=== PATIENT | female | born 1970 | race Caucasian/White ===

== ENCOUNTER 2019-12-16 16:28 | Outpatient (RCR) | payer OTHER, SELFPAY ==
--- NOTE | 2019-12-16 17:58 | PTOPEVAL ---
Thank you for referring this patient to [facility]. Please review, sign, date and return this plan of care [facility]. I agree with and certify that the following plan of care is medically necessary. 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 She reports that Family she got out of her truck and was opening her grain binds. She reports that she was using a broom to push grain into a grate and felt a pop in her low back. She reports she had immediate pain. She reports that she went to the doctor that day. she reports that she has been off work since the initial incident. She reports that she underwent MRI showed disc bulging in the low back. She reports that her neck pain began about 1 1/ 2 to 2 months after the intial injury. She had xray of the neck which showed nothing signficant according to the pt . she reports that her goal is to decrease her neck and back pain. 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
--- NOTE | 2019-12-24 15:54 | PCPTNOTE ---
12/24/19 patient did not show for apt. Attempted contact. no answer. TRINI
--- NOTE | 2019-12-27 15:25 | PCPTNOTE ---
12/27/19 Pt did not show for appt. Attempted contact with no answer. TRINI
--- NOTE | 2020-01-27 11:26 | PCPTNOTE ---
Pt. last attended Rx on 12/23/19. She has failed to return to the clinic since this date and no showed her scheduled appointments for 12/24/19 and 12/27/19. she will be discharged from our care at this time. Refer to last daily note for pt. discharge status.
== END 2019-12-23 09:25 | disposition home or self-care (01) ==
LOC: CHSPT 16:28
DX: M54.5 Low back pain (principal); M54.2 Cervicalgia
CPT/HCPCS: 97014; 97110; 97161; G0283

== ENCOUNTER 2019-12-22 16:55 | Emergency (ER) | payer OTHER, SELFPAY ==
--- NOTE | ~2019-12-22 | XR_ITS ---
EXAMINATION: XR chest 2V DATE: 12/22/2019 17:43 INDICATION: Chest pain and nausea, shortness of breath TECHNIQUE: Frontal and lateral views of the chest are obtained COMPARISON: None available FINDINGS: The lungs are free of acute opacities. There is no pleural effusion or pneumothorax. The ca rdiomediastinal silhouette is normal. There is mild thoracic spondylosis. Surgical clips in the right upper quadrant are likely from prior cholecystectomy. IMPRESSION: 1. No acute cardiopulmonary abnormality. Reviewed, dictated and finalized at location A. [employer]
[2019-12-22 17:00] VITALS: BP 141/79; PULSE 74; RESP 18; TEMP 37; O2SAT 95
--- NOTE | 2019-12-22 17:01 | ECG_ITS ---
Measurements Intervals [place] Rate: 73 P: 47 MA: 180 QRS: 10 QRSD: 93 T: 40 QT: 383 QTc: 424 Interpretive Statements SINUS RHYTHM INCOMPLETE RIGHT BUNDLE BRANCH BLOCK LOW QRS VOLTAGE IN PRECORDIAL LEADS BORDERLINE ECG Electronically Signed On 12-23-2019 8:09:18 [employer]ENDAR CONTROL [employer] by Larry Ribeiro D.O.
--- NOTE | 2019-12-22 17:01 | ED.CHESTPAIN ---
HPI - Chest Pain General Chief Complaint: Chest Pain Stated Complaint: chest pain Time Seen by Provider: 12/22/19 17:01 Source: patient Mode of arrival: ambulatory Limitations: no limitations History of Present Illness HPI narrative: 49-year-old woman comes in today complaining of chest pain in the middle of her chest radiating to right side of her chest and shoulder that started yesterday. Patient states that she has had nausea without vomiting, shortness of breath, fatigue and lightheadedness and sweats with the pain. It was constant for most of the day yesterday and has been intermittent today. She states the pain gets better when she rests. She has had no syncope, cough, abdominal pain or recent illness. She had a negative treadmill stress test within the last 2 years. Patient states she has had an elevated WBC for years as well as some hematuria. She expressed a concern re cancer as an aunt has multiple myeloma. MD complaint: chest pain Onset (ago): day(s) (1) Timing of current episode: episodic Pain location: substernal Pain radiation: right arm and right shoulder Severity: moderate Quality: heaviness and dull Relieving factors: rest Exacerbating factors: nothing Associated symptoms: nausea, diaphoresis and dyspnea Treatment prior to arrival: none Risk Factors Coronary artery disease risk factors: smoking history, hyperlipidemia, hypertension and family history of CAD before age 50 Related Data On Oral Contraceptives: No Home Medications Medication Instructions Recorded Confirmed albuterol sulfate [Ventolin HFA] 1 puff INHALATION BID-TID 12/22/19 12/22/19 aspirin [Aspir-81] 81 mg PO DAILY 12/22/19 12/22/19 biotin-keratin [Biotin Plus 1 tablet PO DAILY 12/22/19 12/22/19 Keratin] bupropion HCl 300 mg PO DAILY 12/22/19 12/22/19 buspirone 7.5 mg PO DAILY 12/22/19 12/22/19 citalopram 40 mg PO DAILY 12/22/19 12/22/19 cyclobenzaprine 10 mg PO BID PRN 12/22/19 12/22/19 famotidine 40 mg PO DAILY 12/22/19 12/22/19 fluticasone propionate 1 spray INTRANASAL 12/22/19 gabapentin 300 mg PO TID 12/22/19 12/22/19 losartan 100 mg PO DAILY 12/22/19 12/22/19 meloxicam 7.5 mg PO DAILY 12/22/19 12/22/19 simvastatin 20 mg PO DAILY 12/22/19 12/22/19 triamterene-hydrochlorothiazid 1 tablet PO DAILY 12/22/19 12/22/19 vitamin B complex [B 1 tablet PO DAILY 12/22/19 12/22/19 Complex-Vitamin B12] Allergies Allergy/AdvReac Type Severity Reaction Status Date / Time No Known Allergies Allergy Unverified 06/02/17 14:52 Review of Systems Constitutional: Constitutional: Denies chills, Reports fatigue, Denies fever(s) and Denies weakness Eyes: Eyes: Denies change in vision and Denies photophobia ENT: Denies dysphagia, Denies nasal congestion and Denies sore throat Cardiovascular: Cardiovascular: Reports as per HPI, Reports chest pain and Reports radiating jaw, neck or arm pain (right) Respiratory: Respiratory: Denies chest congestion, Denies cough, Reports dyspnea and Denies wheezing Gastrointestinal: Gastrointestinal: Denies abdominal pain, Denies diarrhea, Reports nausea and Denies vomiting Genitourinary: Genitourinary: Denies nocturia and Denies dysuria Musculoskeletal: Musculoskeletal: Denies joint swelling Integumentary/Breasts: Skin/Breast: Denies pruritus, Denies erythema and Denies rash Neurologic: Denies vertigo, Denies dizziness, Denies syncope and Denies focal weakness Psychiatric: Psychiatric: Denies anxiety and Denies depression Endocrine: Endocrine: Denies polydipsia and Denies polyuria Hematologic/Lymphatic: Hematologic/Lymphatic: Denies easy bleeding and Denies easy bruising Allergic/Immunologic: Allergic/Immunologic: Denies lip swelling and Denies wheezing PMFSH Past Medical History Medical History Anxiety COPD (chronic obstructive pulmonary disease) Depression GERD (gastroesophageal reflux disease) Hyperlipidemia Hypertension Surgical Hi
[2019-12-22] MEDS: ASPIRIN 81 MG CHEWABLE TABLET 243 MG PO (17:36)
[2019-12-22 17:37] LABS: Hematocrit 40.5 % (35.0-49.0); Hemoglobin 13.7 g/dL (12.0-15.0); Mean Corpuscular HGB Conc 33.8 g/dL (32.0-36.0); Mean Corpuscular Hemoglobin 29.3 pg (27.0-31.0); Mean Corpuscular Volume 86.7 fL (78.0-102.0); Mean Platelet Volume 10.3 fl (9.2-11.8); Platelet Count Result 291 K/mm3 (150-420); Red Blood Count 4.67 M/mm3 (4.20-5.40); Red Cell Distribution Width 13.5 % (11.6-14.4); White Blood Count 15.3 K/mm3 (4.8-10.8)
[2019-12-22 17:37] LABS: Influenza Control Valid (Valid)
[2019-12-22 17:54] LABS: Partial Thromboplastin Time 25.8 SEC (22.3-31.6); Prothrombin Time 9.9 Seconds (9.64-11.0)
[2019-12-22 17:59] LABS: Band Neutrophils Percent 0 % (0-6); Basophils Percent Manual 0 % (0-1); Eosinophils Absolute Manual 0.76 K/mm3 (0.02-0.5); Eosinophils Percent Manual 5 % (1-6); Lymphocytes Absolute Manual 4.89 K/mm3 (1.1-4.5); Lymphocytes Percent Manual 32 % (18-44); Metamyelocytes Percent 0 %; Monocytes Absolute Manual 1.07 K/mm3 (0.1-0.90); Monocytes Percent Manual 7 % (3-9); Myelocytes Percent 0 %; Neutrophils Absolute Manual 8.56 K/mm3 (1.7-7.2); Neutrophils Percent Manual 56 % (46-73); Platelet Estimate Adequate (Adequate); Total Cells Counted 100
[2019-12-22 18:00] LABS: Alanine Aminotransferase 32 U/L (14-59); Albumin Level 3.9 g/dL (3.4-5.0); Alkaline Phosphatase 113 U/L (46-116); Anion Gap 15.6 mmol/L (7-16); Aspartate Amino Transferase 21 U/L (15-37); Bilirubin,Total 0.2 mg/dL (0.00-1.00); Blood Urea Nitrogen 12 mg/dL (7-18); Calcium 8.8 mg/dL (8.5-10.1); Carbon Dioxide 27 mmol/L (21-32); Chloride 104 mmol/L (98-108); D Dimer 0.26 mg/L (0.19-0.50); Estimated Glomerular Filt Rate 54; Glucose 105 mg/dL (70-99); Lipase 157 U/L (73-393); Osmolality Calculated 295 mOsm/kg (285-295); Potassium 3.6 mmol/L (3.5-5.1); Sodium 143 mmol/L (136-145); Troponin I < 0.02 ng/mL (0.00-0.056)
[2019-12-22 18:47] LABS: Add Urine Microscopic? YES; Appearance Urine Clear (Clear); Bilirubin Urine Negative (Negative); Blood Urine 2+ (Negative); Color Urine Yellow (Yellow); Glucose Urine UA Negative (Negative); Ketones Urine Negative (Negative); Leukocyte Esterase Ur Negative (Negative); Nitrate Urine Negative (Negative); Protein Urine Negative (Negative); Urobilinogen Urine 0.2 mg/dL (0.2-1.0); pH Urine 5.5 (5.0-8.0)
[2019-12-22 18:52] LABS: Squamous Epithelial Cell Urine Rare /hpf (Few); WBC Urine 0-3 /hpf (0-3)
[2019-12-22 18:53] LABS: Bacteria Urine None seen /hpf
[2019-12-22 19:03] VITALS: BP 136/77
== END 2019-12-22 19:05 | disposition home or self-care (01) ==
PROVIDERS: Emergency Provider Emergency Medicine; PCP Physician Assistant
DX: R07.9 Chest pain, unspecified (principal)
CPT/HCPCS: 36415; 71046; 80053; 81001; 83690; 84484; 85025; 85380; 85610; 85730; 87804; 93005; 99284; A9270

== ENCOUNTER 2020-05-10 19:05 | Emergency (ER) | payer OTHER, SELFPAY ==
[2020-05-10 19:10] VITALS: BP 165/94; PULSE 70; RESP 16; TEMP 36.6; O2SAT 97
--- NOTE | 2020-05-10 19:38 | ED.NAVMDI ---
HPI - Nausea/Vomiting/Diarrhea General Chief complaint: Upper Respiratory Infection Stated complaint: sore throat, diarrhea, nausea, headache Time Seen by Provider: 05/10/20 19:38 Source: patient Mode of arrival: ambulatory Limitations: no limitations History of Present Illness HPI Narrative: 50-year-old woman comes in today complaining of 2 days of body aches, fatigue, feeling fevers, and nausea and diarrhea. Patient states she has also had a tickle in her throat and a sore throat. Patient states that she thinks she might have strep throat. Her daughter has had a sore throat as well. The patient recently traveled to [place] and went to an [employer] stewart there. She denies chest pain and shortness of breath. Patient states she is concerned because her urine has been darker than usual. MD elicited complaint: nausea, vomiting and diarrhea Onset (ago): day(s) (2) Description of vomiting: food contents Description of diarrhea: watery Associated nausea: Yes Associated abdominal pain: No Location of pain: other ( Throat) Pain consistency: constant Severity: moderate Exacerbating factors: other ( swallowing) Relieving factors: none Context: sick contacts Associated symptoms: myalgias, fever/chills, malaise and nausea/vomiting Treatment prior to arrival: none Related Data Home Medications Medication Instructions Recorded Confirmed albuterol sulfate [Ventolin HFA] 1 puff INHALATION BID-TID 12/22/19 12/22/19 aspirin [Aspir-81] 81 mg PO DAILY 12/22/19 12/22/19 biotin-keratin [Biotin Plus 1 tablet PO DAILY 12/22/19 12/22/19 Keratin] bupropion HCl 300 mg PO DAILY 12/22/19 12/22/19 buspirone 7.5 mg PO DAILY 12/22/19 12/22/19 citalopram 40 mg PO DAILY 12/22/19 12/22/19 cyclobenzaprine 10 mg PO BID PRN 12/22/19 12/22/19 famotidine 40 mg PO DAILY 12/22/19 12/22/19 fluticasone propionate 1 spray INTRANASAL 12/22/19 gabapentin 300 mg PO TID 12/22/19 12/22/19 losartan 100 mg PO DAILY 12/22/19 12/22/19 meloxicam 7.5 mg PO DAILY 12/22/19 12/22/19 simvastatin 20 mg PO DAILY 12/22/19 12/22/19 triamterene-hydrochlorothiazid 1 tablet PO DAILY 12/22/19 12/22/19 vitamin B complex [B 1 tablet PO DAILY 12/22/19 12/22/19 Complex-Vitamin B12] Allergies Allergy/AdvReac Type Severity Reaction Status Date / Time No Known Allergies Allergy Unverified 06/02/17 14:52 Review of Systems Constitutional: Constitutional: Reports chills, Reports fatigue and Reports fever(s) Eyes: Eyes: Denies change in vision and Denies photophobia ENT: Denies dysphagia, Denies nasal congestion and Reports sore throat Cardiovascular: Cardiovascular: Denies chest pain and Denies radiating jaw, neck or arm pain Respiratory: Respiratory: Denies cough, Denies dyspnea and Denies wheezing Gastrointestinal: Gastrointestinal: Denies abdominal pain, Reports diarrhea, Reports nausea and Reports vomiting Integumentary/Breasts: Skin/Breast: Denies pruritus, Denies erythema and Denies rash Neurologic: Denies vertigo, Denies dizziness and Denies syncope Endocrine: Endocrine: Denies polydipsia and Denies polyuria Hematologic/Lymphatic: Hematologic/Lymphatic: Denies easy bleeding and Denies easy bruising Allergic/Immunologic: Allergic/Immunologic: Denies lip swelling and Denies wheezing [facility] Family History Family History (Updated 12/22/19 @ 17:18 by Jase Moscoso MD) Grandparent Acute myocardial infarction about 50 yo at onset Social History Social History Smoking status: Current every day smoker Alcohol intake: never Substance use: never Exam Const: General: alert Nutritional Appearance: obese Orientation/consciousness: patient oriented x3 Limitations: no limitations Other: mild acute distress HENMT: Head: normal to inspection General nose exam: Normal nares present Face and sinus: normal facial exam Mouth: Yes moist mucous membranes Throat: uvula midline Other
--- NOTE | 2020-05-10 19:57 | PC.NURSE ---
PT REPORTS THAT SHE IS NOT CURRENTLY TAKING ANY OF HER MEDICATIONS, STATES SHE HASN'T UNPACKED THEM SINCE GETTING HOME FROM [place] TWO WEEKS AGO.
[2020-05-10 19:59] LABS: Add Urine Microscopic? YES; Appearance Urine Clear (Clear); Bilirubin Urine Negative (Negative); Blood Urine 3+ (Negative); Color Urine Yellow (Yellow); Glucose Urine UA Negative (Negative); Ketones Urine Negative (Negative); Leukocyte Esterase Ur Negative (Negative); Nitrate Urine Negative (Negative); Protein Urine Negative (Negative); Specific Grav Ur 1.025 (1.010-1.020); Urobilinogen Urine 0.2 mg/dL (0.2-1.0)
[2020-05-10 20:06] LABS: Bacteria Urine 2+ /hpf; RBC Urine 21-50 /hpf (0-2); Squamous Epithelial Cell Urine Few /hpf (Few); WBC Urine 0-3 /hpf (0-3)
[2020-05-10 20:19] VITALS: BP 130/63
[2020-05-12 14:52] LABS: SARS-CoV-2 RNA PCR Negative
== END 2020-05-10 20:23 | disposition home or self-care (01) ==
PROVIDERS: Emergency Provider Emergency Medicine; PCP Physician Assistant
DX: J02.9 Acute pharyngitis, unspecified (principal); K52.9 Noninfective gastroenteritis and colitis, unspecified
CPT/HCPCS: 81001; 87081; 87635; 87880; 99283; C9803; U0003

== ENCOUNTER 2020-08-04 19:19 | Emergency (ER) | payer OTHER, SELFPAY ==
--- NOTE | ~2020-08-04 | CT_ITS ---
EXAMINATION: CT abdomen pelvis w con INDICATION: Nausea, vomiting, and diarrhea, epigastric pain TECHNIQUE: Computed tomographic images of the abdomen and pelvis were obtained after the administrati on of 100 cc of Omnipaque 350 intravenous contrast. The dose-length product (DLP) was 1488.70 mGy-cm. Automated exposure control and iterative reconstruction technique were employed. COMPARISON: None available FINDINGS: The lung bases are clear. The heart size is normal. The gallbladder is surgically absent. T he liver is diffusely low in attenuation when compared with the spleen, consistent with hepatic steat osis. The spleen, pancreas, and adrenal glands are normal. There is a 9 mm cyst of the right kidney u pper pole. The left kidney is unremarkable. No pathologically enlarged abdominal or pelvic lymph node s are identified. There is no free intraperitoneal gas or evidence of bowel obstruction. IMPRESSION: 1. No CT correlate for the patient's symptoms. 2. Diffuse hepatic steatosis. Reviewed, dictated and finalized at location A.
--- NOTE | 2020-08-04 19:25 | PC.NURSE ---
Pt vomiting, no obvious signs of blood noted.
[2020-08-04] MEDS: ONDANSETRON INJ 4 MG/2 ML VIAL IV PUSH (19:28)
--- NOTE | 2020-08-04 19:28 | ED.GIBLEED ---
HPI - GI Bleed General Chief complaint: Abdominal Pain Stated complaint: . Time Seen by Provider: 08/04/20 19:28 Source: patient and RN notes reviewed Mode of arrival: ambulatory Limitations: no limitations History of Present Illness HPI Narrative: Patient states she has had intermittent vomiting of blood for 2 months. She has also had some black stools intermittently. Said last time she had some black stools was couple weeks ago. The reason she came in today because severe abdominal pain epigastric. She has been taking naproxen daily for several years. MD complaint: blood streaked emesis, blood on toilet paper and melena Onset (ago): month(s) (2) Pain Consistency: intermittent Severity: moderate Relieving factors: none Exacerbating factors: none Associated symptoms: abdominal pain, nausea and vomiting Treatments Prior to Arrival: none Related Data Home Medications Medication Instructions Recorded Confirmed naproxen 500 mg PO BID PRN 08/04/20 08/04/20 Allergies Allergy/AdvReac Type Severity Reaction Status Date / Time No Known Allergies Allergy Unverified 06/02/17 14:52 Review of Systems Constitutional: Constitutional: Denies chills, Denies fever(s) and Denies weakness Eyes: Eyes: Reports no additional eye complaints ENT: Reports system reviewed and no additional complaints, except as documented Cardiovascular: Cardiovascular: Reports no additional cardiovascular complaints Respiratory: Respiratory: Reports no additional respiratory complaints Gastrointestinal: Gastrointestinal: Reports as per HPI Musculoskeletal: Musculoskeletal: Reports no additional musculoskeletal complaints Integumentary/Breasts: Skin/Breast: Reports system reviewed and no additional complaints, except as docu Neurologic: Reports system reviewed and no additional complaints, except as documented Psychiatric: Psychiatric: Reports no additional psychiatric complaints Endocrine: Endocrine: Reports no additional endocrine complaints [facility] Past Medical History Medical History Anxiety COPD (chronic obstructive pulmonary disease) Depression GERD (gastroesophageal reflux disease) Hyperlipidemia Hypertension Surgical History Surgical History History of appendectomy History of hysterectomy Hx of cholecystectomy Family History Family History Grandparent Acute myocardial infarction about 50 yo at onset Social History Social History Smoking status: Current every day smoker Alcohol intake: never Substance use: never Exam Const: General: healthy appearing, no acute distress and alert Nutritional Appearance: well nourished and obese morbidly obese Orientation/consciousness: patient oriented x3 Other: Female nurse in room during examination. HENMT: Head: normal to inspection Ears: external ears normal Eyes: Conjunctivae: conjunctivae normal Pupils: Equal, round and reactive pupils present EOM: EOMs intact bilaterally Neck: Neck: normal visual inspection Resp: Effort & Inspection: normal respiratory effort Auscultation: clear to auscultation bilaterally Cardio: Rate: regular rate Rhythm: regular rhythm GI: GI Palp: Yes Soft to palpation, Yes Tenderness to palpation present (GI) (Moderate epigastric), Yes Guarding due to palpation present (GI) and No Rebound tenderness present Auscultation: normal bowel sounds Rectal Exam: normal sphincter tone, No External hemorrhoid(s) present, No Internal hemorrhoid(s) present and No tenderness Back/Spine/Pelvis: Cervical Spine: cervical ROM normal Thoracic/Lumbar Spine: thoraco-lumbar ROM normal Skin: General skin exam: normal color Rashes: no rashes Neuro: General: patient oriented x3, moves all extremities and no focal motor deficits S
[2020-08-04 19:34] VITALS: BP 166/88; PULSE 79; RESP 18; TEMP 37.1; O2SAT 95
[2020-08-04 19:43] LABS: Basophils Absolute Auto 0.07 K/mm3 (0.00-0.10); Basophils Percent Auto 0.4 % (0.0-1.0); Eosinophils Absolute Auto 0.49 K/mm3 (0.02-0.50); Hematocrit 44.8 % (35.0-49.0); Hemoglobin 14.8 g/dL (12.0-15.0); Immature Granulocyte Absolute 0.06 K/mm3 (0.00-0.00); Immature Granulocyte Percent A 0.4 % (0.0-0.0); Lymphocytes Absolute Auto 5.35 K/mm3 (1.10-4.50); Lymphocytes Percent Auto 32.9 % (18.0-42.0); Mean Corpuscular Hemoglobin 28.4 pg (27.0-31.0); Mean Corpuscular Volume 85.8 fL (78.0-102.0); Mean Platelet Volume 10.4 fl (9.2-11.8); Monocytes Absolute Auto 1.16 K/mm3 (0.10-0.90); Monocytes Percent Auto 7.1 % (2.0-11.0); Neutrophils Absolute Auto 9.1 K/mm3 (1.7-7.2); Neutrophils Percent Auto 56.2 % (50.0-70.0); Platelet Count Result 324 K/mm3 (150-420); Red Blood Count 5.22 M/mm3 (4.20-5.40); Red Cell Distribution Width 13.1 % (11.6-14.4); White Blood Count 16.3 K/mm3 (4.8-10.8)
[2020-08-04] MEDS: PANTOPRAZOLE SODIUM IV 40 MG VIAL IV PUSH (19:44)
[2020-08-04 19:56] LABS: Partial Thromboplastin Time 26.8 SEC (22.3-31.6); Prothrombin Time 10.1 Seconds (9.64-11.0)
[2020-08-04 19:58] LABS: Alanine Aminotransferase 29 U/L (14-59); Albumin Level 3.7 g/dL (3.4-5.0); Alkaline Phosphatase 119 U/L (46-116); Anion Gap 12 mmol/L (8-16); Aspartate Amino Transferase 21 U/L (15-37); Bilirubin,Total 0.3 mg/dL (0.00-1.00); Blood Urea Nitrogen 15 mg/dL (7-18); Calcium 8.9 mg/dL (8.5-10.1); Carbon Dioxide 25 mmol/L (21-32); Chloride 105 mmol/L (98-108); Estimated CRCL calculation 70 ml/min; Estimated Glomerular Filt Rate 56; Glucose 115 mg/dL (70-99); Lipase 114 U/L (73-393); Magnesium 1.9 mg/dL (1.8-2.4); Osmolality Calculated 295 mOsm/kg (285-295); Potassium 3.6 mmol/L (3.5-5.1); Sodium 142 mmol/L (136-145); Total Protein 7.7 g/dL (6.4-8.2)
[2020-08-04 20:06] LABS: Occult Blood Negative (Negative)
[2020-08-04 20:51] VITALS: BP 126/74; PULSE 72; RESP 18; O2SAT 97
--- NOTE | 2020-08-04 20:53 | PC.NURSE ---
Pt states that she is unable to provide urine sample at this time.
[2020-08-04 21:24] LABS: Add Urine Microscopic? YES; Appearance Urine Clear (Clear); Bilirubin Urine Negative (Negative); Blood Urine 3+ (Negative); Color Urine Yellow (Yellow); Glucose Urine UA Negative (Negative); Ketones Urine Negative (Negative); Leukocyte Esterase Ur Negative LEU/UL (Negative); Nitrate Urine Negative (Negative); Protein Urine Negative (Negative); Urobilinogen Urine 0.2 mg/dL (0.2-1.0); pH Urine 5.5 (5.0-8.0)
[2020-08-04 21:29] LABS: Bacteria Urine Trace /hpf; Squamous Epithelial Cell Urine Few /hpf (Few); WBC Urine 0-3 /hpf (0-3)
== END 2020-08-04 21:42 | disposition home or self-care (01) ==
PROVIDERS: Emergency Provider Emergency Medicine
DX: K27.9 Peptic ulcer, site unspecified, unspecified as acute or chronic, without hemorrhage or perforation (principal); R31.9 Hematuria, unspecified
CPT/HCPCS: 36415; 74177; 80053; 81001; 82272; 83690; 83735; 85025; 85610; 85730; 96374; 96375; 99283; 99284; C9113; J2405; Q9965

== ENCOUNTER 2020-12-22 12:41 | Emergency (ER) | payer OTHER, SELFPAY ==
--- NOTE | ~2020-12-22 | CT_ITS ---
EXAMINATION: CT brain wo con, CT cervical spine wo con EXAM DATE: 12/22/2020 13:56 (accession [id number]), 12/22/2020 13:53 (accession [id number]) INDICATION: Trauma fall on head 1day ago, headache and neck pain. TECHNIQUE: Spiral CT of the head was performed without contrast. Axial, coronal and sagittal images were reviewed. Spiral CT of the cervical spine was performed without contrast. Axial images were rev iewed. Coronal and sagittal reformatted images were also reviewed. The dose-length product (DLP) fo r this examination was 605.33 (accession [id number]), 1.00 (accession [id number]) mGy-cm. Th e exposure was tailored according to patient size, and iterative reconstruction (ASIR) was used as ad ditional dose reduction technique. There is no prior study for comparison. FINDINGS: HEAD CT: There is no acute intraparenchymal hemorrhage. No evidence of intraparenchymal brain mass l esion. No evidence of acute infarction. There is no mass effect or midline shift. There is no obstru ctive hydrocephalus suspected. There are no extra-axial collections. There are no acute calvarial f ractures. The orbits are unremarkable. Soft tissue is unremarkable. The visualized sinuses and mas toid air cells are well aerated. CERVICAL CT: There is severe left C7-T1 facet arthropathy. Otherwise mild to moderate cervical spondy losis. There is no evidence of acute cervical fracture. The odontoid process is intact. Pre-dens sp jose is normal. Prevertebral soft tissue is normal. There are no soft tissue abnormalities identifie d. There is no disc space widening or traumatic vertebral body subluxation suspected. A detailed level by level evaluation of spondylosis can be added as addendum if requested. IMPRESSION: 1. No acute intracranial findings or cervical fracture. Reviewed, dictated and finalized at location B. [facility] [employer] [employer] IMPRESSION: 1. No acute intracranial findings or cervical fracture.
--- NOTE | 2020-12-22 12:47 | ED.FALL ---
HPI - Fall General Chief Complaint: Head Injury Stated Complaint: head injury Time Seen by Provider: 12/22/20 12:47 Source: patient Mode of arrival: ambulatory Limitations: no limitations History of Present Illness HPI Narrative: Patient comes in with headache and posterior neck pain, she had a post fall last pm and hit her in the neck. Since then she says she has had a bad headache. She has had no emesis, but has had nausea. She says she was moving her bed and a bedpost hit her hard in the posterior neck. Since that time pain has been moderately severe and has been ongoing, not relieved by NSAIDs at home. Related Data Home Medications Medication Instructions Recorded Confirmed naproxen 500 mg PO BID PRN 08/04/20 08/04/20 Allergies Allergy/AdvReac Type Severity Reaction Status Date / Time No Known Allergies Allergy Unverified 06/02/17 14:52 Review of Systems Constitutional: Constitutional: Reports no additional constitutional complaints Eyes: Eyes: Reports no additional eye complaints ENT: Reports system reviewed and no additional complaints, except as documented Cardiovascular: Cardiovascular: Reports no additional cardiovascular complaints Respiratory: Respiratory: Reports no additional respiratory complaints Gastrointestinal: Gastrointestinal: Reports no additional gastrointestinal complaints Genitourinary: Genitourinary: Reports no additional female genitourinary complaints Musculoskeletal: Musculoskeletal: Reports no additional musculoskeletal complaints Integumentary/Breasts: Skin/Breast: Reports system reviewed and no additional complaints, except as docu Neurologic: Reports system reviewed and no additional complaints, except as documented Psychiatric: Psychiatric: Reports no additional psychiatric complaints Endocrine: Endocrine: Reports no additional endocrine complaints Hematologic/Lymphatic: Hematologic/Lymphatic: Reports no additional hematologic/lymphatic complaints Allergic/Immunologic: Allergic/Immunologic: Reports no additional allergic/immunologic complaints [facility] Past Medical History Medical History Anxiety COPD (chronic obstructive pulmonary disease) Depression GERD (gastroesophageal reflux disease) Hyperlipidemia Hypertension Surgical History Surgical History History of appendectomy History of hysterectomy Hx of cholecystectomy Family History Family History Grandparent Acute myocardial infarction about 50 yo at onset Social History Social History Smoking status: Current every day smoker Alcohol intake: never Substance use: never Gender identity (if verbalized by the patient): Female Exam Const: General: alert Orientation/consciousness: patient oriented x3 HENMT: Head: normal to inspection Ears: external ears normal and TM's normal bilaterally General nose exam: Normal external nose present Face and sinus: normal facial exam Mouth: Yes Normal oral and palatal mucosa present Eyes: Conjunctivae: conjunctivae normal Neck: Neck: normal visual inspection and no lymphadenopathy Other: She appears to have some mild tenderness to touch at the posterior mid cervical spine area where the post struck her. She actually does not appear to have any significant decrease in her range of motion. Chest: Chest palpation & inspection: normal inspection of the chest Resp: Effort & Inspection: normal respiratory effort Auscultation: clear to auscultation bilaterally Cardio: Rate: regular rate Rhythm: regular rhythm GI: GI Palp: Yes Soft to palpation (nontender) Skin: General skin exam: normal color Neuro: General: patient oriented x3 and moves all extremities Extrem: General: normal to inspection Psych: Appearance: grossly normal M
[2020-12-22 13:10] VITALS: BP 133/79; PULSE 89; RESP 20; TEMP 36.3; O2SAT 96
[2020-12-22] MEDS: MAG HYDROX/ALUMINUM HYD/SIMETH 30 ML, PHENobarb/HYOSCY/ATROPINE/SCOP 32.4 MG, LIDOCAINE... PO (14:04)
[2020-12-22] MEDS: DICYCLOMINE HCL INJ 20 MG/2 ML VIAL IM (14:05)
[2020-12-22] MEDS: KETOROLAC (*BKC) 60 MG/2 ML VIAL IM (14:32)
[2020-12-22] MEDS: BACLOFEN 10 MG TABLET 20 MG PO (14:33)
[2020-12-22 15:05] VITALS: BP 142/86; PULSE 62; RESP 20; O2SAT 96
== END 2020-12-22 15:10 | disposition home or self-care (01) ==
PROVIDERS: Emergency Provider Emergency Medicine; PCP Physician Assistant
DX: M54.2 Cervicalgia (principal); R51.9 Headache, unspecified; I10 Essential (primary) hypertension; J44.9 Chronic obstructive pulmonary disease, unspecified; K21.9 Gastro-esophageal reflux disease without esophagitis; E78.5 Hyperlipidemia, unspecified; H53.40 Unspecified visual field defects; F41.9 Anxiety disorder, unspecified; Z90.49 Acquired absence of other specified parts of digestive tract; Z90.710 Acquired absence of both cervix and uterus; W20.8XXA Other cause of strike by thrown, projected or falling object, initial encounter; Y93.89 Activity, other specified; Y92.009 Unspecified place in unspecified non-institutional (private) residence as the place of occurrence of the external cause
CPT/HCPCS: 70450; 72125; 96372; 99283; 99284; A9270; J0500; J1885

== ENCOUNTER 2020-12-25 12:46 | Emergency (ER) | payer OTHER, SELFPAY ==
--- NOTE | 2020-12-25 12:49 | ED.GENADULT ---
HPI - General Adult General Chief complaint: Upper Respiratory Infection Stated complaint: headache and sore throat Time Seen by Provider: 12/25/20 12:49 Source: patient Mode of arrival: ambulatory Limitations: no limitations History of Present Illness HPI narrative: 50-year-old female patient presents to the [facility] with complaints of an ongoing headache since hitting her head a couple of days ago as well as a new sore throat and runny nose. Patient states that she hit her head a couple days ago seen in the emergency department and was given ketorolac as well as some muscle relaxants for headache and neck pain after her CT showed that she had no issues in the brain or bones of the neck. Patient states yesterday she started having sore throat, runny nose. Denies any fevers, body aches or chills. Patient states she is slightly nauseated but states that has also been ongoing since hitting her head. Patient denies any chest pain or shortness of breath. Patient states she has had a little bit of a cough that also started yesterday as well. Denies taking anything for her symptoms since they started. Related Data Home Medications Medication Instructions Recorded Confirmed No Home Medications 12/25/20 12/25/20 Allergies Allergy/AdvReac Type Severity Reaction Status Date / Time No Known Allergies Allergy Verified 12/25/20 13:13 Review of Systems Review of Systems: Narrative: CONSTITUTIONAL: Denies fever, chills, or sweats. EYES: Denies visual changes, redness, or discharge. ENT: Positive rhinorrhea, congestion, positive sore throat, or otalgia. CARDIOVASCULAR: Denies chest pain, palpitations, or edema. RESPIRATORY: Positive cough denies dyspnea. GASTROINTESTINAL: Denies abdominal pain, positive intermittent nausea, denies vomiting, or diarrhea. GENITOURINARY: Denies dysuria or hematuria. SKIN: Denies rash or itching. MUSCULOSKELETAL: Denies back pain, joint pain, or myalgia. NEUROLOGIC: Positive intermittent headache, denies numbness, or weakness. PSYCHIATRIC: Denies anxiety or depression. [facility] Past Medical History Medical History (Updated 12/25/20 @ 13:24 by ALETHEA Francisco) Anxiety COPD (chronic obstructive pulmonary disease) Depression GERD (gastroesophageal reflux disease) Hyperlipidemia Hypertension Surgical History Surgical History History of appendectomy History of hysterectomy Hx of cholecystectomy Family History Family History Grandparent Acute myocardial infarction about 50 yo at onset Social History Social History Smoking status: Current every day smoker Alcohol intake: never Substance use: never Gender identity (if verbalized by the patient): Female Comments At the time of my signature I agree with nursing past medical history, surgical, social, and family history. There is no relevant family history pertinent to the presenting complaint. Exam Narrative: Exam Narrative: GENERAL: Well-appearing, well-nourished, and in no acute distress. HEAD: Normocephalic, atraumatic. EYES: PERRLA and EOMI. ENT: Nares with erythema and edema noted bilaterally, no rhinorrhea or epistaxis. Mucous membranes moist. Posterior pharynx with slight erythema but no tonsil enlargement, no exudates or lesions present. Bilateral TMs are clear no erythema or foreign bodies in the canal. NECK: Supple. No lymphadenopathy CHEST: Clear to auscultation. No respiratory distress. HEART: Regular rate and rhythm. No murmur heard. Normal peripheral pulses. ABDOMEN: Soft, nontender, nondistended, normal active bowel sounds. EXTREMITIES: Normal range of motion. No edema. SKIN: Warm, dry, no rash. NEURO: No focal deficits. Alert and oriented x3. Course Vital Signs Vital signs: Vital Signs Temperature 36.6 C 12/25/20 13:02 Pul
[2020-12-25 13:02] VITALS: BP 145/89; PULSE 66; RESP 16; TEMP 36.6; O2SAT 99
[2020-12-26 19:42] LABS: SARS-CoV-2 RNA PCR Negative
== END 2020-12-25 13:29 | disposition home or self-care (01) ==
PROVIDERS: Emergency Provider Nurse Practitioner Family; PCP Physician Assistant
DX: J02.9 Acute pharyngitis, unspecified (principal); Z20.822 Contact with and (suspected) exposure to COVID-19; F17.200 Nicotine dependence, unspecified, uncomplicated; J44.9 Chronic obstructive pulmonary disease, unspecified; K21.9 Gastro-esophageal reflux disease without esophagitis; E78.5 Hyperlipidemia, unspecified; I10 Essential (primary) hypertension
CPT/HCPCS: 87081; 87880; 99213; C9803; G0463; U0003; U0005

== ENCOUNTER 2022-04-25 11:18 | Emergency (ER) | payer OTHER, SELFPAY ==
--- NOTE | ~2022-04-25 | CT_ITS ---
EXAMINATION: CTA chest PE protocol DATE: 04/25/2022 14:33 INDICATION: Shortness of breath, elevated d-dimer. Covid infection. TECHNIQUE: Computed tomography angiography (CTA) of the chest was performed with 100 mL Omnipaque-350 intravenous contrast timed to evaluate the pulmonary arteries. Coronal maximum intensity projection 3D-reconstructions were created by the technologist. Automated exposure control and iterative reconst ruction technique were employed. Exam dose: 1064.57 mGy-cm total exam DLP. COMPARISON: 04/25/2022 portable AP chest FINDINGS: There is diagnostic contrast enhancement of the pulmonary arteries and no evidence of pulmo nary embolism. No thoracic aortic aneurysm or dissection. Normal heart size. No pericardial or pleural effusion. Nonspecific mild hilar and mediastinal lymph node prominence, possibly reactive No pulmonary infiltrate or consolidation or pulmonary mass lesion is detected. Normal morphology of the adrenal glands. Status post cholecystectomy. Included skeletal structures are unremarkable. IMPRESSION: No evidence of pulmonary embolism Reviewed, dictated and finalized at [facility]. Reviewed, dictated and finalized at [facility].
--- NOTE | ~2022-04-25 | XR_ITS ---
EXAMINATION: XR chest 1V portable INDICATION: Cough TECHNIQUE: Portable AP chest at 1232 hours COMPARISON: 12/22/2019 FINDINGS: The lungs are free of acute opacities. No pleural effusion or pneumothorax. The cardiothymi c silhouette is normal. Surgical clips in the right upper quadrant are likely from prior cholecystect nallely. IMPRESSION: 1. No acute cardiopulmonary abnormality. Reviewed, dictated and finalized at location [facility].
[2022-04-25 11:25] VITALS: BP 130/72; PULSE 62; RESP 18; TEMP 36.7; O2SAT 96
[2022-04-25 11:34] VITALS: BP 107/70; PULSE 91; RESP 21; TEMP 36.7; O2SAT 96
--- NOTE | 2022-04-25 11:45 | ED.URI ---
HPI - URI/Sore Throat General Chief Complaint: Upper Respiratory Infection Stated Complaint: COUGH CONGESTION HEADACHE Time Seen by Provider: 04/25/22 11:45 Source: patient Mode of arrival: ambulatory History of Present Illness HPI Narrative: 52-year-old female, tremor smoker anxiety/depression hypertension, COPD presents to the ER with a 2 day history -- cough with mucoid sputum -- nausea, vomiting and diarrhea. No abdominal pain. -- Body ache -- frontal headache MD elicited complaint: cough Pertinent past history: COPD Onset (ago): day(s) ( started 2 days ago) Consistency: constant Severity: moderate Description of mucous: clear Able to tolerate fluids by mouth: Yes Exacerbating factors: nothing Relieving factors: nothing Associated symptoms: denies other symptoms Treatments prior to arrival: none Related Data Allergies Allergy/AdvReac Type Severity Reaction Status Date / Time No Known Allergies Allergy Verified 04/25/22 11:35 Review of Systems Review of Systems: All systems reviewed & are unremarkable except as noted in HPI and below Constitutional: Constitutional: Reports as per HPI and Reports no additional constitutional complaints Eyes: Eyes: Reports as per HPI and Reports no additional eye complaints ENT: Reports system reviewed and no additional complaints, except as documented and Reports as per HPI Cardiovascular: Cardiovascular: Reports as per HPI and Reports no additional cardiovascular complaints Respiratory: Respiratory: Reports as per HPI, Reports no additional respiratory complaints, Reports chest congestion, Reports cough and Reports dyspnea Gastrointestinal: Gastrointestinal: Reports as per HPI, Reports no additional gastrointestinal complaints, Reports diarrhea, Reports nausea and Reports vomiting Genitourinary: Genitourinary: Reports no additional female genitourinary complaints and Reports as per HPI Musculoskeletal: Musculoskeletal: Reports no additional musculoskeletal complaints, Reports as per HPI, Reports myalgias and Reports muscle cramps Integumentary/Breasts: Skin/Breast: Reports system reviewed and no additional complaints, except as docu and Reports as per HPI Neurologic: Reports system reviewed and no additional complaints, except as documented and Reports as per HPI Psychiatric: Psychiatric: Reports no additional psychiatric complaints and Reports as per HPI Endocrine: Endocrine: Reports no additional endocrine complaints and Reports as per HPI Hematologic/Lymphatic: Hematologic/Lymphatic: Reports no additional hematologic/lymphatic complaints and Reports as per HPI Allergic/Immunologic: Allergic/Immunologic: Reports no additional allergic/immunologic complaints and Reports as per HPI [facility] Past Medical History Medical History (Updated 04/25/22 @ 15:01 by Ryan De La Rosa MD) Anxiety COPD (chronic obstructive pulmonary disease) Depression GERD (gastroesophageal reflux disease) Hyperlipidemia Hypertension Surgical History Surgical History History of appendectomy History of hysterectomy Hx of cholecystectomy Family History Family History Grandparent Acute myocardial infarction about 50 yo at onset Social History Social History Smoking status: Current every day smoker Alcohol intake: never Substance use: never Gender identity (if verbalized by the patient): Female Exam Const: General: no acute distress Nutritional Appearance: well nourished and obese Orientation/consciousness: patient oriented x3 Limitations: no limitations HENMT: Head: normal to inspection Ears: external ears normal General nose exam: Normal external nose present Face and sinus: normal facial exam Mouth: Yes Normal oral and palatal mucosa present Throat: posterior oropharynx normal Eyes: Conjunc
--- NOTE | 2022-04-25 11:56 | ECG_ITS ---
Measurements Intervals Ehrhardt Rate: 70 P: 49 NV: 176 QRS: 14 QRSD: 79 T: 47 QT: 372 QTc: 401 Interpretive Statements SINUS RHYTHM LOW QRS VOLTAGE IN PRECORDIAL LEADS [QRS DEFLECTION < 1.0 mV IN CHEST LEADS] ANTEROSEPTAL MYOCARDIAL INFARCTION , OF INDETERMINATE AGE [40+ ms Q WAVE IN V1-V4] COMPARED TO ECG 12/22/2019 17:01:26 ANTERIOR Q-WAVES ARE NOW SEEN Electronically Signed On 04-25-2022 15:44:06 CDT by Arturo Coleman M.D.
[2022-04-25 12:14] LABS: Basophils Absolute Auto 0.03 K/mm3 (0.00-0.10); Basophils Percent Auto 0.5 % (0.0-1.0); Eosinophils Absolute Auto 0.03 K/mm3 (0.02-0.50); Eosinophils Percent Auto 0.5 % (1.0-6.0); Hematocrit 44.7 % (35.0-49.0); Hemoglobin 14.8 g/dL (12.0-15.0); Immature Granulocyte Absolute 0.01 K/mm3 (0.00-0.00); Immature Granulocyte Percent A 0.2 % (0.0-0.0); Lymphocytes Absolute Auto 2.48 K/mm3 (1.10-4.50); Lymphocytes Percent Auto 37.5 % (18.0-42.0); Mean Corpuscular HGB Conc 33.1 g/dL (32.0-36.0); Mean Corpuscular Hemoglobin 28.4 pg (27.0-31.0); Mean Corpuscular Volume 85.8 fL (78.0-102.0); Mean Platelet Volume 10.5 fl (9.2-11.8); Monocytes Absolute Auto 0.74 K/mm3 (0.10-0.90); Monocytes Percent Auto 11.2 % (2.0-11.0); Neutrophils Absolute Auto 3.3 K/mm3 (1.7-7.2); Neutrophils Percent Auto 50.1 % (50.0-70.0); Platelet Count Result 168 K/mm3 (150-420); Red Blood Count 5.21 M/mm3 (4.20-5.40); Red Cell Distribution Width 13.1 % (11.6-14.4); White Blood Count 6.6 K/mm3 (4.8-10.8)
[2022-04-25] MEDS: KETOROLAC 30 MG/ML VIAL (*BKC) IM (12:20)
[2022-04-25 12:34] LABS: Lactic Acid Reflex 0.8 mmol/L (0.4-2.0)
[2022-04-25 12:38] LABS: Alanine Aminotransferase 33 U/L (14-59); Albumin Level 3.4 g/dL (3.4-5.0); Alkaline Phosphatase 104 U/L (46-116); Anion Gap 7 mmol/L (8-16); Aspartate Amino Transferase 36 U/L (15-37); Bilirubin,Total 0.2 mg/dL (0.00-1.00); Blood Urea Nitrogen 14 mg/dL (7-18); Calcium 8.5 mg/dL (8.5-10.1); Carbon Dioxide 28 mmol/L (21-32); Chloride 102 mmol/L (98-108); Estimated CRCL calculation 60 ml/min; Estimated Glomerular Filt Rate 48; Glucose 89 mg/dL (70-99); Osmolality Calculated 283 mOsm/kg (285-295); Potassium 3.3 mmol/L (3.5-5.1); Sodium 137 mmol/L (136-145); Total Protein 7.2 g/dL (6.4-8.2); Troponin I 13.9 ng/L (0.00-60.4)
[2022-04-25 12:40] VITALS: BP 125/63; PULSE 68; RESP 18; O2SAT 96
[2022-04-25 12:41] LABS: NT Pro B Type Natriuretic Pept 28 pg/mL (0-125)
[2022-04-25 12:53] LABS: SARS-CoV-2 RNA PCR Positive (Negative)
[2022-04-25 12:58] LABS: Influenza A QL RT-PCR Negative (Negative); Influenza B QL RT-PCR Negative (Negative)
[2022-04-25 13:27] LABS: D Dimer 0.68 mg/L (0.19-0.50)
[2022-04-25] MEDS: ONDANSETRON HCL ODT 4 MG TABLET PO (13:29)
[2022-04-25 13:38] VITALS: BP 132/68; PULSE 61; RESP 16; TEMP 36.6; O2SAT 97
--- NOTE | 2022-04-25 14:11 | PC.NURSE ---
Multiple RN's attempted to start IV x 5 with no success. Pt had large vein in left lower leg. CÉSAR Lopez confirmed with CT that IV could be placed there prior to attempting. This RN successfully placed 20 gauge IV in left lower leg.
[2022-04-25] MEDS: SODIUM CHLORIDE 0.9% IV 500 ML 999 ML IV CONT (14:15)
[2022-04-25 15:08] VITALS: BP 128/88; PULSE 69; RESP 18; TEMP 36.6; O2SAT 97
[2022-04-25] MEDS: POTASSIUM CHLORIDE 20 MEQ TABLET PO (15:23)
== END 2022-04-25 15:22 | disposition home or self-care (01) ==
PROVIDERS: Emergency Provider Internal Medicine Critical Care Medicine; PCP Physician Assistant
DX: U07.1 COVID-19 (principal); J44.9 Chronic obstructive pulmonary disease, unspecified; K52.9 Noninfective gastroenteritis and colitis, unspecified
CPT/HCPCS: 36415; 71045; 71275; 80053; 83605; 83880; 84484; 85025; 85380; 87502; 93005; 96360; 96372; 99284; A9270; C9803; J1885; J7040; Q9967; U0003; U0005

== ENCOUNTER 2023-05-05 16:21 | Emergency (ER) | payer OTHER, SELFPAY ==
[2023-05-05 16:32] VITALS: BP 140/75; PULSE 77; RESP 18; TEMP 36.7; O2SAT 98
--- NOTE | 2023-05-05 16:39 | ED.SKABFB ---
HPI - Skin/Abscess/Foreign Bdy General Chief complaint: Wound/Laceration Stated complaint: Tick bite left leg Time Seen by Provider: 05/05/23 16:39 Source: patient and RN notes reviewed Mode of arrival: ambulatory Limitations: no limitations History of Present Illness HPI narrative: 53-year-old female presents with concern for tick bite. She also reports a burn that she sustained last week on her left arm that has opened up. She reports she noticed a tick on the back of her left leg, her boyfriend pulled it out and she thinks the head not come out. She reports it became swollen and red and is tender. She reports she had a headache today. She denies fever. She reports a burn on her left arm that she got on a muffler last week, she reports it opened up slightly and is painful. She denies any increased redness, warmth, swelling. She reports she has been putting burn patches on it. MD complaint: rash Related Data Allergies Allergy/AdvReac Type Severity Reaction Status Date / Time No Known Allergies Allergy Verified 05/05/23 16:27 Review of Systems Review of Systems: CONSTITUTIONAL: Denies malaise, chills, sweats, or fever. EYES: Denies redness, or discharge. ENT: Denies rhinorrhea, congestion, swollen lips, swollen tongue CARDIOVASCULAR: Denies chest pain, palpitations, or edema. RESPIRATORY: Denies cough or dyspnea. GASTROINTESTINAL: Denies abdominal pain, nausea, vomiting SKIN: Reports tick bite on the back of her left leg, burn on her left arm MUSCULOSKELETAL: Denies joint pain or myalgia. NEUROLOGIC: Denies headache. All systems reviewed & are unremarkable except as noted in HPI and below [facility] Past Medical History Medical History (Updated 05/05/23 @ 16:48 by Keyonna Mccall NP) Anxiety COPD (chronic obstructive pulmonary disease) Depression GERD (gastroesophageal reflux disease) Hyperlipidemia Hypertension Surgical History Surgical History History of appendectomy History of hysterectomy Hx of cholecystectomy Family History Family History Grandparent Acute myocardial infarction about 50 yo at onset Social History Social History Smoking status: Current every day smoker Alcohol intake: never Substance use: never Living arrangements: with family Gender identity (if verbalized by the patient): Female Comments At time of signature, agree with nursing past medical, surgical, social and family history. There is no relevant family history pertinent to the presenting complaint Exam Narrative: GENERAL: Well-appearing, well-nourished, and in no acute distress. HEAD: Normocephalic, atraumatic. EYES: PERRLA, conjunctivae clear, and EOMI. ENT: Mucous membranes moist. Oropharynx without edema, erythema or lesions. NECK: Supple. No lymphadenopathy CHEST: Clear to auscultation. No respiratory distress. HEART: Regular rate and rhythm. SKIN: Warm, dry. Approximately 1 cm raised erythematous tender non fluctuant area noted behind left knee without any surrounding redness, streaking, no visible foreign body. Approximately he 4 cm circular burn, with small area of open skin, no blistering noted to the left forearm without surrounding erythema, edema, induration NEURO: Alert and oriented x3. PSYCH: Normal mood and affect Course Course Emergency Course: Patient is concerned there might be a retained take head, there is no visible or palpable foreign body so I will not attempt removal at this time. Doxycycline prescribed Patient is aware of diagnosis, understands and agrees to treatment plan. Anticipatory guidance given. Patient agrees to follow-up as directed and is aware of reasons to seek care at the emergency department. Portions of this record may have been created with voice recognition software Level of Care: Exp
[2023-05-05 16:43] VITALS: BP 140/75; PULSE 77; RESP 18; TEMP 36.7; O2SAT 98
== END 2023-05-05 16:50 | disposition home or self-care (01) ==
PROVIDERS: Emergency Provider Nurse Practitioner; PCP Physician Assistant
DX: T22.212A Burn of second degree of left forearm, initial encounter (principal); X16.XXXA Contact with hot heating appliances, radiators and pipes, initial encounter; S80.262A Insect bite (nonvenomous), left knee, initial encounter; W57.XXXA Bitten or stung by nonvenomous insect and other nonvenomous arthropods, initial encounter; J44.9 Chronic obstructive pulmonary disease, unspecified; K21.9 Gastro-esophageal reflux disease without esophagitis; E78.5 Hyperlipidemia, unspecified; I10 Essential (primary) hypertension; F17.200 Nicotine dependence, unspecified, uncomplicated
CPT/HCPCS: 99213; G0463

== ENCOUNTER 2024-02-10 08:24 | Emergency (ER) | payer SELFPAY ==
--- NOTE | ~2024-02-10 | XR_ITS ---
EXAMINATION: XR chest 2V DATE: 02/10/2024 09:22 INDICATION: COPD with increasing productive cough TECHNIQUE: frontal and lateral views of the chest were obtained. COMPARISON: None FINDINGS: The lungs are clear with no focal airspace opacities, pulmonary edema, pleural effusion or pneumothor ax. The cardiomediastinal silhouette is normal. Mild thoracic spondylosis. Likely cholecystectomy cli ps in the upper abdomen. IMPRESSION: 1. No acute cardiopulmonary disease. Reviewed, dictated and finalized at location [facility].
[2024-02-10 08:29] VITALS: BP 156/81; PULSE 70; RESP 18; TEMP 36.4; O2SAT 99
[2024-02-10 08:33] VITALS: BP 156/81; PULSE 70; RESP 18; TEMP 36.4; O2SAT 99
--- NOTE | 2024-02-10 09:11 | ED.URI ---
HPI - URI/Sore Throat General Chief Complaint: Upper Respiratory Infection Stated Complaint: Cough/Chest Congestion Time Seen by Provider: 02/10/24 08:57 Source: patient, RN notes reviewed and old records reviewed Mode of arrival: ambulatory Limitations: no limitations History of Present Illness HPI Narrative: 53-year-old [facility] to [facility] for complaint of inflamed bronchioles and subjective fever for 6 days. 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 Patient states that because of this, her PCP would not call in prescriptions for her. Patient endorses smoking history 1.5 packs per day And COPD. Patient allergies. Patient denies nausea, vomiting chest pain, shortness of breath. Patient able to tolerate by mouth. Related Data Allergies Allergy/AdvReac Type Severity Reaction Status Date / Time No Known Allergies Allergy Verified 05/05/23 16:27 Review of Systems Review of Systems: All systems reviewed & are unremarkable except as noted in HPI and below Constitutional: Constitutional: Reports as per HPI, Denies body ache(s), Denies chills and Reports fever(s) ( Subjective) Eyes: Eyes: Reports no additional eye complaints ENT: Reports as per HPI and Reports sore throat ( patient states from postnasal drainage) Cardiovascular: Cardiovascular: Reports no additional cardiovascular complaints, Denies chest pain and Denies dyspnea Respiratory: Respiratory: Reports no additional respiratory complaints, Reports chest congestion, Reports cough, Reports excessive phlegm production and Denies dyspnea Musculoskeletal: Musculoskeletal: Reports no additional musculoskeletal complaints Neurologic: Reports system reviewed and no additional complaints, except as documented Psychiatric: Psychiatric: Reports no additional psychiatric complaints [facility] Past Medical History Medical History Anxiety COPD (chronic obstructive pulmonary disease) Depression GERD (gastroesophageal reflux disease) Hyperlipidemia Hypertension Surgical History Surgical History History of appendectomy History of hysterectomy Hx of cholecystectomy Family History Family History Grandparent Acute myocardial infarction about 50 yo at onset Social History Social History Smoking status: Current every day smoker Alcohol intake: never Substance use: never Living arrangements: with family Gender identity (if verbalized by the patient): Female Comments At the time of my signature, I reviewed and agree with the nursing past medical, surgical, social, and family history. There is no relevant family history pertinent to the patient complaint. Exam Const: General: cooperative, comfortable, no acute distress, alert, ill appearing, tired appearing and well nourished Nutritional Appearance: well nourished Orientation/consciousness: patient oriented x3 Limitations: no limitations HENMT: Head: normal to inspection Ears: external ears normal Face/Nose/Sinus: Normal external nose present, Normal nares present, normal facial exam, No erythema and No edema Face and sinus: normal facial exam, no erythema and no edema Mouth: Yes Normal oral and palatal mucosa present Throat: posterior oropharynx abnormal erythema and postnasal drainage Eyes: General: appearance normal, both eyes and all related structures Neck: Neck: normal visual inspection, full ROM and no meningeal signs Lymphatic: no lymphadenopathy noted and no lymphedema noted Chest: Chest palpation & inspection: normal inspection of the chest Resp: Effort & Inspection: normal respiratory effort and able to speak in complete sentences Auscultation: crackles bilateral and diffuse and
[2024-02-10] MEDS: IPRATROPIUM BR 0.02% INH SOLN 0.5 MG/2.5 ML VIAL INHALATION (09:28)
[2024-02-10] MEDS: ALBUTEROL SULFATE NEB 2.5 MG/3 ML INH INHALATION (09:28)
[2024-02-10 09:49] VITALS: PULSE 62; RESP 20; O2SAT 97
== END 2024-02-10 09:51 | disposition home or self-care (01) ==
PROVIDERS: Emergency Provider Nurse Practitioner Family; PCP Physician Assistant
DX: J32.9 Chronic sinusitis, unspecified (principal); F17.200 Nicotine dependence, unspecified, uncomplicated; J44.9 Chronic obstructive pulmonary disease, unspecified; K21.9 Gastro-esophageal reflux disease without esophagitis; E78.5 Hyperlipidemia, unspecified; I10 Essential (primary) hypertension
CPT/HCPCS: 71046; 99213; G0463